=== PATIENT | female | born 1950 | race Caucasian/White ===

== ENCOUNTER 2021-03-03 20:54 | Emergency (ER) | payer OTHER ==
[~2021-03-03 20:54] MED LIST: NAPROSYN500 MG PO; NORCO 5-325 TA1 EACH PO; PEPCID AC20 MG PO; SYNTHROID100 MCG PO
[2021-03-03 21:30] LABS: BASOPHIL 1.7 % (0-2); EOSINOPHIL 1.1 % (0-7); HCT 22.5 % (37.0-47.0); LYMPHOCYTE 36.4 % (15-48); MCH 18.7 pg (25.0-31.0); MCHC 27.1 g/dL (32.0-36.0); MPV 10.5 fL (6.0-9.5); NEUTROPHIL 51.6 % (41-80); NRBC 0; PLT 320 K/uL (150-400); RBC 3.26 M/uL (4.20-5.40); RDW 17.4 % (11.5-14.0); WBC 6.4 K/uL (4.0-10.5)
[2021-03-03 21:44] LABS: HGB 6.1 g/dl (12.5-16.0)
[2021-03-03 21:59] LABS: BILIRUBIN - TOTAL 0.3 mg/dL (0.2-1.0); BUN/CREAT RATIO (CALC) 21.1 RATIO; CREATININE 0.71 mg/dL (0.51-0.95); FT4 (FREE T4) 1.3 ng/dL (0.76-1.46); GLOBULIN (CALCULATION) 3.3 g/dL; POTASSIUM 3.6 mmol/L (3.5-5.1); TOTAL PROTEIN 7.3 g/dL (6.4-8.2)
[2021-03-03 22:22] LABS: RETICULOCYTE COUNT 1.1 % (1.0-2.0)
[2021-03-03 22:28] LABS: IRON % SATURATION 1.6 %SAT (20-50)
[2021-03-03 22:54] LABS: FOLIC ACID (SERUM) 18.3 ng/mL (8.6-58.9)
[2021-03-03 23:37] LABS: INR 1.21 (0.9-1.2); PROTHROMBIN TIME 14.5 SECONDS (11.4-13.6); PTT 31.8 SECONDS (22.2-34.7)
[2021-07-28] MEDS ORDERED: METOPROLOL SUCC25 MG PO (13:27)
[2021-07-28] MEDS ORDERED: ELIQUIS2.5 MG PO (13:27)
[2021-07-28] MEDS ORDERED: VITAMIN D350 MC5 PO (13:28)
[2021-07-28] MEDS ORDERED: PACERONE 200MG200 MG PO (13:28)
[2021-07-28] MEDS ORDERED: NORCO 5/3251 EACH PO (13:30)
== END 2021-03-03 23:40 | disposition home or self-care (01) ==
LOC: FER 20:54
PROVIDERS: Emergency Medicine Emergency Medical Services
DX: R00.2 Palpitations (principal); R07.89 Other chest pain; I48.91 Unspecified atrial fibrillation; Z79.01 Long term (current) use of anticoagulants
CPT/HCPCS: 36415; 71045; 80053; 82607; 82746; 83540; 83550; 84439; 84443; 84484; 85025; 85610; 85730; 86850; 86880; 86900; 86901; 86905; 86922; 93005; P9016

== ENCOUNTER → 2021-08-03 | Day surgery (SDC) | payer OTHER ==
[~2021-08-03] VITALS: Ht 162.6 cm; Wt 59.9 kg
[~2021-08-03] MED LIST changes: +ELIQUIS2.5 MG PO; +METOPROLOL SUCC25 MG PO; +NORCO 5/3251 EACH PO; +PACERONE 200MG200 MG PO; +VITAMIN D350 MC5 PO
[2021-08-03 09:43] LABS: BASOPHIL 1.4 % (0-2); EOSINOPHIL 0.9 % (0-7); HCT 28.8 % (37.0-47.0); HGB 8.8 g/dl (12.5-16.0); LYMPHOCYTE 21.1 % (15-48); MCH 28.4 pg (25.0-31.0); MCHC 30.6 g/dL (32.0-36.0); MCV 92.9 fL (78.0-100.0); MONOCYTE 6.9 % (0-12); MPV 9.8 fL (6.0-9.5); NEUTROPHIL 69.4 % (41-80); NRBC 0; PLT 281 K/uL (150-400); RDW 13.3 % (11.5-14.0); WBC 3.5 K/uL (4.0-10.5)
[2021-08-03 11:11] LABS: RETICULOCYTE COUNT 2.3 % (1.0-2.0)
[2021-08-03 12:02] LABS: ALBUMIN 3.3 g/dL (3.4-5.0); BILIRUBIN - TOTAL 0.3 mg/dL (0.2-1.0); BUN/CREAT RATIO (CALC) 7.6 RATIO; CREATININE 0.92 mg/dL (0.51-0.95); FOLIC ACID (SERUM) 17.9 ng/mL (8.6-58.9); FT4 (FREE T4) 1.8 ng/dL (0.76-1.46); GLOBULIN (CALCULATION) 2.9 g/dL; MAGNESIUM 1.9 mg/dL (1.8-2.4); POTASSIUM 3.6 mmol/L (3.5-5.1); TOTAL PROTEIN 6.2 g/dL (6.4-8.2)
== END | disposition home or self-care (01) ==
LOC: FAS 07-13 08:00
PROVIDERS: Surgery
DX: D12.5 Benign neoplasm of sigmoid colon (principal); K64.8 Other hemorrhoids; K52.9 Noninfective gastroenteritis and colitis, unspecified; I48.91 Unspecified atrial fibrillation; E03.9 Hypothyroidism, unspecified; Z79.01 Long term (current) use of anticoagulants; Z79.899 Other long term (current) drug therapy; Z86.010 Personal history of colon polyps; Z90.49 Acquired absence of other specified parts of digestive tract; Z87.891 Personal history of nicotine dependence
CPT/HCPCS: 36415; 80053; 82607; 82728; 82746; 83010; 83540; 83550; 83615; 83735; 84439; 84443; 84481; 85025; J2704; J7120

== ENCOUNTER 2021-09-08 10:38 | Day surgery (SDC) | payer OTHER ==
[~2021-09-08] VITALS: Ht 162.6 cm; Wt 59.9 kg
[2021-09-08 12:58] LABS: BUN/CREAT RATIO (CALC) 10.9 RATIO; CREATININE 0.92 mg/dL (0.51-0.95); POTASSIUM 3.6 mmol/L (3.5-5.1)
[2021-09-08] MEDS ORDERED: PERCOCET 5-3251 EACH PO (18:06)
== END 2021-09-08 20:15 | disposition home or self-care (01) ==
LOC: FAS 10:38 → FMS 18:47 → FAS 20:15
PROVIDERS: Anesthesiology
DX: K64.8 Other hemorrhoids (principal); D12.6 Benign neoplasm of colon, unspecified; K52.9 Noninfective gastroenteritis and colitis, unspecified; I48.91 Unspecified atrial fibrillation; E03.9 Hypothyroidism, unspecified; Z79.01 Long term (current) use of anticoagulants; Z79.899 Other long term (current) drug therapy; Z90.49 Acquired absence of other specified parts of digestive tract; Z87.891 Personal history of nicotine dependence
CPT/HCPCS: 36415; 80048; J0694; J1100; J1885; J2250; J2405; J2704; J3010; J7120